=== PATIENT | female | born 1950 | race Caucasian/White ===

== ENCOUNTER 2018-10-28 12:46 | Emergency (ER) | payer MEDICARE, OTHER ==
[2014-09-16 20:54] VITALS: BP 119/58
[~2018-10-28] VITALS: Ht 157.5 cm; Wt 90.7 kg
[~2018-10-28 12:46] MED LIST: CALC500T54 PO; PARO40TA61 PO
--- NOTE | 2018-10-28 13:40 | PHYS DOC ---
Past Medical History Past Medical History: Asthma, Migraines Additional Past Medical Histor: "chemical imbalance" Past Surgical History: Cancer Surgery, Hysterectomy, Tonsillectomy, Other Additional Past Surgical Histo: Cartilage removal left knee Alcohol Use: None Drug Use: None Adult General Chief Complaint Chief Complaint: LOWER EXT PAIN HPI HPI Patient is a 68 year old L presented to ER today for evaluation of right leg swelling, pain behind her right knee for about 5 days. Patient denied any injury , no chest pain, no trouble breathing. Review of Systems Review of Systems Constitutional: Denies fever or chills [] Eyes: Denies change in visual acuity, redness, or eye pain [] HENT: Denies nasal congestion or sore throat [] Respiratory: Denies cough or shortness of breath [] Cardiovascular: No additional information not addressed in HPI [] GI: Denies abdominal pain, nausea, vomiting, bloody stools or diarrhea [] : Denies dysuria or hematuria [] Musculoskeletal: Positive for right leg pain, pain behind her right knee Integument: Denies rash or skin lesions [] Neurologic: Denies headache, focal weakness or sensory changes [] Endocrine: Denies polyuria or polydipsia [] All other systems were reviewed and found to be within normal limits, except as documented in this note. Allergies Allergies Allergies Coded Allergies Type Severity Reaction Last Updated Verified No Known Drug Allergies 12/10/13 No Physical Exam Physical Exam Constitutional: Well developed, well nourished, no acute distress, non-toxic appearance. [] HENT: Normocephalic, atraumatic, bilateral external ears normal, oropharynx moist, no oral exudates, nose normal. [] Eyes: PERRLA, EOMI, conjunctiva normal, no discharge. [] Neck: Normal range of motion, no tenderness, supple, no stridor. [] Cardiovascular:Heart rate regular rhythm, no murmur [] Lungs & Thorax: Bilateral breath sounds clear to auscultation [] Abdomen: Bowel sounds normal, soft, no tenderness, no masses, no pulsatile masses. [] Skin: Warm, dry, no erythema, no rash. [] Back: No tenderness, no CVA tenderness. [] Extremities: Tenderness to palpation in popliteal area on right side, right leg swelling mildly, no erythema. Neurologic: Alert and oriented X 3, normal motor function, normal sensory function, no focal deficits noted. [] Psychologic: Affect normal, judgement normal, mood normal. [] Current Patient Data Vital Signs Vital Signs Date Time Temp Pulse Resp B/P (MAP) Pulse Ox O2 Delivery O2 Flow Rate FiO2 10/28/18 13:26 98.3 80 19 158/78 (104) 99 Room Air 98.3 EKG EKG [] Radiology/Procedures Radiology/Procedures [][facility] [address] [place] [address] IMAGING REPORT Signed PATIENT: MELISSA SHETTY ACCOUNT: [id number] : 1950 LOCATION: ER AGE: 68 SEX: F EXAM STATUS: REG ER ORD. PHYSICIAN: REENA HERNANDEZ DO REASON: RIGHT LEG PAIN AND SWELLING FOR 5 DAYS PROCEDURE: VENOUS LOWER EXTREMITY RIGHT EXAM: Right lower extremity venous Doppler sonogram. HISTORY: Pain and swelling. TECHNIQUE: [place] scale and color Doppler sonographic evaluation of the right lower extremity veins with spectral waveform analysis was performed. FINDINGS: There is normal color flow, normal compressibility and there are normal spectral waveforms in the common femoral, superficial femoral, popliteal, posterior tibial and greater saphenous veins. There is a 2.8 x 2.5 x 1.8 cm popliteal cyst. IMPRESSION: 1. No Doppler evidence of lower extremity deep venous thrombosis. 2. 2.8 cm left Mariee's cyst. Electronically signed by: Tiffany Alcala MD (10/28/2018 2:14 PM) [facility] DICTATED and SIGNED BY: TIFFANY ALCALA MD DATE: 10/28/18 1414 Course & Med Decision Making Course & Med Decision Making Pertinent Labs and Imaging studies reviewed. (See chart for details) [] Dragon Disclaimer Dragon Disclaimer This electronic medical record was generated, in whole or in part, using a voice recognition dictation system. Departure Departure Impression: Primary Impression: Mariee's cyst of knee Disposition: 01 HOME, SELF-CARE Condition: STABLE Referrals: CHRISTIANO GOLDBERG (PCP) FOLLOW UP WITH YOUR FAMILY DOCTOR FOR A REFFERAL TO AN ORTHOPEDIC DOCTOR FOR FURTHER TREATMENT Patient Instructions: Mariee's Cyst Scripts Tramadol Hcl (TRAMADOL HCL) 50 Mg Tablet 50 MG PO Q6HRS PRN for PAIN, #20 TAB Prov: REENA HERNANDEZ DO 10/28/18 REENA HERNANDEZ DO Oct 28, 2018 13:40
--- NOTE | 2018-10-28 14:18 | RAD ---
EXAM: Right lower extremity venous Doppler sonogram. HISTORY: Pain and swelling. TECHNIQUE: [place] scale and color Doppler sonographic evaluation of the right lower extremity veins with spectral waveform analysis was performed. FINDINGS: There is normal color flow, normal compressibility and there are normal spectral waveforms in the common femoral, superficial femoral, popliteal, posterior tibial and greater saphenous veins. There is a 2.8 x 2.5 x 1.8 cm popliteal cyst. IMPRESSION: 1. No Doppler evidence of lower extremity deep venous thrombosis. 2. 2.8 cm left Mariee's cyst. Electronically signed by: Tiffany Adrian MD (10/28/2018 2:14 PM) [place] [id number]
[2018-10-28] MEDS ORDERED: TRAM50TA PO (14:40)
== END 2018-10-28 15:13 | disposition home or self-care (01) ==
LOC: ER 12:46
DX: M71.21 Synovial cyst of popliteal space [Baker], right knee (principal); J45.909 Unspecified asthma, uncomplicated; G43.909 Migraine, unspecified, not intractable, without status migrainosus
CPT/HCPCS: 93971; 99284-25